=== PATIENT | male | born 1985 | race Caucasian/White ===

== ENCOUNTER 2016-12-10 02:34 | Emergency (ER) | payer BC, OTHER ==
[2016-12-10 03:14] LABS: Amphetamine Not Detected (NotDetected); Barbiturates Screen Not Detected (NotDetected); Benzodiazepine Screen Not Detected (NotDetected); Cocaine Metabolite Screen Not Detected (NotDetected); Medtox Control Line Valid? VALID (VALID); Methadone Not Detected (NotDetected); Methamphetamine Not Detected (NotDetected); Opiate Screen Not Detected (NotDetected); Oxycodone Screen Not Detected (NotDetected); Phencyclidine (PCP) Not Detected (NotDetected); THC/Cannabinoid Screen Not Detected (NotDetected); Tricyclic Screen Not Detected (NotDetected)
--- NOTE | 2016-12-10 03:21 | ERRECORD ---
[facility] EMERGENCY RECORD HPI GENERAL (02:36 ABUS) CHIEF COMPLAINT: Patient presents for evaluation of Possible exposure to PCP or something else. 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 He then cleaned the substance off of your fingers with hand filter cloth maker. The patient reports he was inspecting a car and person of interest who had been reportedly using PCP and was acting bizarre. He denies having an changes in vision, nausea and vomiting, abnormal thoughts, changes in perceptions, hallucinations (auditory or visual), or confusion. MECHANISM OF INJURY: Unknown mechanism. LOCATION: No localizing symptoms. SEVERITY: Currently there are no symptoms, Current severity of pain rated as 0/10. TIME COURSE: Sudden onset of symptoms, just prior to arrival, Date and time of onset was 1:15 am on 12/10/16, There has been no change in the patient's symptoms over time. ASSOCIATED WITH: No associated symptoms. EXACERBATED BY: Patient's condition exacerbated by nothing. RELIEVED BY: Patient's condition relieved by nothing. ROS (02:44 ABUS) CONSTITUTIONAL: Negative constitutional review of systems, Historian denies chills, denies fever. EYES: Negative eye review of systems, Historian denies eye pain, denies eye discharge, denies vision changes. ENT: Negative ears, nose, throat review of systems, Historian denies drooling, denies dysphagia, denies dysphasia, denies dysphonia, denies epistaxis, denies otalgia, denies otorrhea, denies rhinorrhea, denies sinus pain, denies sore throat, denies snoring, denies stridor, denies tinnitus, denies voice changes. Metallic taste, dry mouth. CARDIOVASCULAR: Negative cardiovascular review of systems, Historian denies chest pain, denies palpitations. RESPIRATORY: Negative respiratory review of systems, Historian denies cough, denies shortness of breath. GI: Negative gastrointestinal review of systems, Historian denies abdominal pain, denies constipation, denies diarrhea, denies nausea, denies vomiting. GENITOURINARY MALE: Negative genitourinary review of systems, Historian denies dysuria, denies hematuria. MUSCULOSKELETAL: Negative musculoskeletal review of systems, Historian denies back pain, denies fall, denies injury, denies neck &a-1R&a+25V*p+0X*[id number]*c202B*c15G*c2P*p-0X&a-25V&a+1R Name: Marco Antonio Garsia : 1985 M31 MedRec: [id number] AcctNum: [id number] Prepared: Sat Dec 10, 2016 03:24 by Interface Page 1 of 4 pMD [facility] EMERGENCY RECORD pain. SKIN: Negative skin review of systems, Historian denies rash, denies skin changes. NEUROLOGIC: Historian denies confusion, denies dizziness, denies dysphasia, denies focal weakness, denies headache, denies irritability, denies mental status changes, denies paralysis, denies paresthesias, denies seizures, reports sensory changes, denies speech changes. Metallic taste and tingling to the tongue. HEMO/LYMPHATIC: Normal hematologic/lymphatic system review, Historian denies abnormal blood clotting. PAST MEDICAL HISTORY (02:41 JDEA) MEDICAL HISTORY: Past medical history is not significant. MALE SURGICAL HISTORY: Patient's surgical history is not relevant to the management of the case. PSYCHIATRIC HISTORY: No previous psychiatric history. SOCIAL HISTORY: Patient denies alcohol use, Patient denies drug use, Patient has no smoking history, Lives at home, with family. KNOWN ALLERGIES nkda CURRENT MEDICATIONS (02:41 JDEA) None VITAL SIGNS (02:39 JDEA) VITAL SIGNS: BP: 136/104, Pulse: 89, Resp: 18, Temp: 98.3 (Oral), Pain: 0, O2 sat: 98 on Room Air, Time: 12/10/2016 02:39. PHYSICAL EXAM (02:44 ABUS) CONSTITUTIONAL: Vital signs reviewed, Patient afebrile, Pulse normal, Blood pressure normal, Respiratory rate normal, Patient appears non toxic, Patient appears pain free, Patient alert and oriented to person, place and time, Speaking in full sentences and answering all questions appropriately. HEAD: Head exam normal, Head exam included findings of head atraumatic, normocephalic. EYES: Eye exam normal, Eye exam included findings of eyelids normal to inspection, Pupils equally round and reactive to light, Extraocular muscles intact, no nystagmus. ENT: ENT exam normal, Ear exam normal, external ear normal, tympanic membranes normal, no bleeding, Pharynx exam normal, Uvula exam normal, Tonsil exam normal, Mouth exam normal, mucous membranes moist, teeth normal. NECK: Neck exam normal, Neck exam included findings of normal range of motion, Trachea midline, no meningeal signs, no cervical adenopathy, no tenderness. RESPIRATORY CHEST: Respiratory and chest exam normal, Respiratory exam included findings of no respiratory distress, Breath sounds &a-1R&a+25V*p+0X*[id number]*c202B*c15G*c2P*p-0X&a-25V&a+1R Name: Marco Antonio Garsia : 1985 M31 MedRec: [id number] AcctNum: [id number] Prepared: Sat Dec 10, 2016 03:24 by Interface Page 2 of 4 pMD [facility] EMERGENCY RECORD clear. CARDIOVASCULAR: Cardiovascular assessment normal, Cardiovascular exam included findings of heart rate regular rate and rhythm, Heart sounds normal. ABDOMEN MALE: Abdominal exam included findings of abdomen nontender, Bowel sounds normal, no distension, no mass, no pulsatile masses, no peritoneal signs, no rigidity, no guarding, no rebound, Rovsing's sign absent. BACK: Back exam normal, Back exam included findings of normal inspection, range of motion normal, no tenderness. UPPER EXTREMITY: Upper extremity exam normal, Upper extremity exam included findings of inspection normal, Range of motion normal, Motor strength normal, Sensation intact, Radial pulse normal. LOWER EXTREMITY: Lower extremity exam normal, Lower extremity exam included findings of inspection normal, Range of motion normal, Motor strength normal, Sensation intact, Posterior tibial pulse normal, Pedal pulse normal. NEURO: Neuro exam normal, Merrick coma scale 15, Neuro exam findings include patient oriented to person, place and time, Speech normal, Gait normal, Able to walk normal, acting normal. SKIN: Skin exam normal, Skin exam included findings of skin warm, dry, and normal in color, no rash. PSYCHIATRIC: Psychiatric exam normal, Psychiatric exam included findings of patient oriented to person place and time, Normal affect, Judgment normal, Insight normal, No suicidal ideations, No homicidal ideations, No auditory or visual hallucinations. DOCTOR NOTES (02:49 ABUS) TEXT: Pt is an officer with the [employer] and reports contact with a liquid substance only and then having a metallic taste in his mouth almost instantaneously but still present. He has no perception or other neurologic changes. He is sent here for a formal evaluation and urine drug test since it could be PCP or fentanyl. Exam: normal, GCS 15, acting normal and answering all questions appropriately in full sentences. See full exam for other details. DDX: illicit drug exposure. Plan: Urine drug screen for documentation purposes using appropriate urine specimen cup. I explained to the patient and his customer facilities supervisor that the urine drug screen may be limited in what it detects as well as limited to what substances, especially if changed, may not show up on the test. Dispo: Upon receipt of the urine sample, the patient can be discharged with the results of our local test and any other urine tests needed. PROBLEM LIST No recorded problems DIAGNOSIS (03:10 ABUS) FINAL: PRIMARY: Drug Exposure (Presumed). &a-1R&a+25V*p+0X*[id number]*c202B*c15G*c2P*p-0X&a-25V&a+1R Name: Marco Antonio Garsia : 1985 M31 MedRec: [id number] AcctNum: [id number] Prepared: Warner Dec 10, 2016 03:24 by Interface Page 3 of 4 pMD [facility] EMERGENCY RECORD PRESCRIPTION No recorded prescriptions DISPOSITION PATIENT: Disposition Type: Discharge, Disposition: *Discharge Home, Condition: Good. (03:10 ABUS) Patient left the department. (03:19 [place]) Cramer: JOHNSON=MD Melody, Abiodun FIGUEROA=Ancelmo, RN, Emma &a-1R&a+25V*p+0X*[id number]*c202B*c15G*c2P*p-0X&a-25V&a+1R Name: AdyRory hawthornein : 1985 M31 MedRec: [id number] AcctNum: [id number] Prepared: Warner Dec 10, 2016 03:24 by Interface Page 4 of 4 pMD BLAISED
--- NOTE | 2016-12-10 03:26 | PICIS ---
[facility] EMERGENCY RECORD TRIAGE ([facility] Dec 10, 2016 02:36 JDEA) TRIAGE NOTES: pt is in for exposure to unknown substance, pt states began to have metal taste in mouth s/p exposure. ([facility] Dec 10, 2016 02:36 JDEA) PATIENT: NAME: Marco Antonio Garsia, AGE: 31, GENDER: male, : Mon1985, TIME OF GREET: MonDec 10, 2016 02:34, PREFERRED LANGUAGE: Emirati, ETHNICITY: Not or , ECODE BILLING MAP: [facility], SSN: [id number], Zip Code: [address], KG WEIGHT: 95.25 (est.), PHONE: , , , PERSON ID: [id number], PCP: Cesario ROBIN JAMES. ([facility] Dec 10, 2016 02:36 JDEA) COMPLAINT: EXPOSURE. ([facility] Dec 10, 2016 02:36 JDEA) ADMISSION: URGENCY: 2 Emergent, ADMISSION SOURCE: Other, TRANSPORT: Walk-in, BED: TRIAGE. ([facility] Dec 10, 2016 02:36 JDEA) IMMUNIZATIONS: Flu vaccine up to date, Tetanus immunization up to date, Pneumococcal vaccine not up to date. (02:41 JDEA) TRIAGE SCREENING: Patient denies suicidal ideation, Patient denies presence of domestic violence. (02:41 JDEA) PROVIDERS: TRIAGE NURSE: Emma Ag RN. ([facility] Dec 10, 2016 02:36 JDEA) VITAL SIGNS: BP 136/104, Pulse 89, Resp 18, Temp 98.3, (Oral), Pain 0, O2 Sat 98, on Room Air, Time 12/10/2016 02:39. (02:39 JDEA) KNOWN ALLERGIES nkda CURRENT MEDICATIONS (02:41 JDEA) None VITAL SIGNS (02:39 JDEA) VITAL SIGNS: BP: 136/104, Pulse: 89, Resp: 18, Temp: 98.3 (Oral), Pain: 0, O2 sat: 98 on Room Air, Time: 12/10/2016 02:39. NURSING ASSESSMENT: FOCUSED (02:41 JDEA) CONSTITUTIONAL: Complex assessment performed, Patient arrives ambulatory, Gait steady, History obtained from patient, Patient appears comfortable, Patient cooperative, Patient alert, Oriented to person, place and time, Skin warm, Skin dry, Skin normal in color, Mucous membranes pink, Mucous membranes moist, Patient complains of exposure, pt is in for exposure to unknown substance, pt states began to have metal taste in mouth s/p exposure. states was searching a vehicle and touched an object he said he believed to be a cigarette, states that it felt wet to touch, states that immediately after he began to have a taste in his mouth, states he does not feel weird currently, states only has a dry and metal taste in his mouth, states picked object up with right hand and immediately put it down. denies other complaints. PAIN: denies pain at this time. EYES: Focused eye assessment finding include pupils equally round and reactive to light, Left pupil 3 mm in size, Right pupil 3 mm in &a-1R&a+25V*p+0X*c0652Z*c202B*c15G*c2P*p-0X&a-25V&a+1R Name: Marco Antonio Garsia : 1985 M31 MedRec: [id number] AcctNum: [id number] Prepared: Sat Dec 10, 2016 03:24 by Interface Page 1 of 7 pMD [facility] EMERGENCY RECORD size, no redness, no tearing. NEURO: Focused neuro assessment findings include patient alert, cooperative, No facial droop noted, Speech coherent. GCS: Eye opening: (4) - Spontaneous, Verbal: (5) - Oriented/conversive, Motor: (6) - Obeys commands/Spontaneous, GCS Total: 15. RESPIRATORY: Focused respiratory assessment findings include breath sounds clear, Breath sounds not absent. ABDOMEN: Focused abdominal assessment findings include abdomen soft, non tender, no complaint of nausea, no vomiting. GENITOURINARY: Focused genitourinary assessment not applicable, Notes: per pt report. MUSCULOSKELETAL: Focused musculoskeletal assessment findings include normal range of motion, radial pulse +3. LACERATION: Focused laceration assessment not applicable. NOTES: Patient tolerated procedure well. SAFETY: Side rails up, Cart/Stretcher in lowest position, Call light within reach, Hospital ID band on, Notes: sgt with pt at this time. NURSING PROCEDURE: CABLE TELEVISION TECHNICIAN (02:45 JDEA) PATIENT IDENTIFIER: Patient actively involved in identification process, Patient's identity verified by hospital ID bracelet. CABLE TELEVISION TECHNICIAN: Cardiac monitoring indicated for er indication, Patient placed on plumbing technician, Patient placed on non-invasive blood pressure monitor, Patient placed on continuous pulse oximetry, Notes: not continuous, utilized for triage purpose. FOLLOW-UP: After procedure, alarms set and on. NOTES: Patient tolerated procedure well. SAFETY: Side rails up, Cart/Stretcher in lowest position, Call light within reach, Hospital ID band on. NURSING PROCEDURE: DISCHARGE NOTE (03:18 JDEA) DISCHARGE: Patient discharged to work, ambulating without assistance, driving self, unaccompanied, Summary of Care printed/ provided, Patient requested and was provided an electronic copy of Discharge Instructions, Transition record given to patient, Discharge instructions given to patient, Simple or moderate discharge teaching performed, Above person(s) verbalized understanding of discharge instructions and follow-up care, Patient treated and evaluated by physician. BELONGINGS: Belongings and valuables with patient at time of discharge include:, Belongings remain with patient. NURSING PROCEDURE: URINE COLLECTION (02:54 JDEA) PATIENT IDENTIFIER: Patient actively involved in identification process, Patient's identity verified by hospital ID bracelet. URINE COLLECTION MALE: Urine collection indicated for er indication, Notes: s/p exposure, cup to pt, specimen labeled in front of pt and sent to lab by RN. &a-1R&a+25V*p+0X*q2051P*c202B*c15G*c2P*p-0X&a-25V&a+1R Name: Marco Antonio Garsia : 1985 M31 MedRec: [id number] AcctNum: [id number] Prepared: Sat Dec 10, 2016 03:24 by Interface Page 2 of 7 pMD [facility] EMERGENCY RECORD NOTES: Patient tolerated procedure well. SAFETY: Side rails up, Cart/Stretcher in lowest position, Call light within reach, Hospital ID band on. ORDER DETAILS Order Name: Drug Screen, Urine, Status: Active, Time: 02:48 12/10/2016, User: CAROLINA, - Ordered for: MD Melody, Abiodun, - Entered by: BING Ag, Emma - Sat Dec 10, 2016 02:48, - Quantity: 1. HPI GENERAL (02:36 ABUS) CHIEF COMPLAINT: Patient presents for evaluation of Possible exposure to PCP or something else. 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 He then cleaned the substance off of your fingers with hand water pump operator. The patient reports he was inspecting a car and person of interest who had been reportedly using PCP and was acting bizarre. He denies having an changes in vision, nausea and vomiting, abnormal thoughts, changes in perceptions, hallucinations (auditory or visual), or confusion. MECHANISM OF INJURY: Unknown mechanism. LOCATION: No localizing symptoms. SEVERITY: Currently there are no symptoms, Current severity of pain rated as 0/10. TIME COURSE: Sudden onset of symptoms, just prior to arrival, Date and time of onset was 1:15 am on 12/10/16, There has been no change in the patient's symptoms over time. ASSOCIATED WITH: No associated symptoms. EXACERBATED BY: Patient's condition exacerbated by nothing. RELIEVED BY: Patient's condition relieved by nothing. ROS (02:44 ABUS) CONSTITUTIONAL: Negative constitutional review of systems, Historian denies chills, denies fever. EYES: Negative eye review of systems, Historian denies eye pain, denies eye discharge, denies vision changes. ENT: Negative ears, nose, throat review of systems, Historian denies drooling, denies dysphagia, denies dysphasia, denies dysphonia, denies epistaxis, denies otalgia, denies otorrhea, denies rhinorrhea, denies sinus pain, denies sore throat, denies snoring, denies stridor, denies tinnitus, denies voice changes. Metallic &a-1R&a+25V*p+0X*n0313U*c202B*c15G*c2P*p-0X&a-25V&a+1R Name: Marco Antonio Garsia : 1985 M31 MedRec: [id number] AcctNum: [id number] Prepared: Warner Dec 10, 2016 03:24 by Interface Page 3 of 7 pMD [facility] EMERGENCY RECORD taste, dry mouth. CARDIOVASCULAR: Negative cardiovascular review of systems, Historian denies chest pain, denies palpitations. RESPIRATORY: Negative respiratory review of systems, Historian denies cough, denies shortness of breath. GI: Negative gastrointestinal review of systems, Historian denies abdominal pain, denies constipation, denies diarrhea, denies nausea, denies vomiting. GENITOURINARY MALE: Negative genitourinary review of systems, Historian denies dysuria, denies hematuria. MUSCULOSKELETAL: Negative musculoskeletal review of systems, Historian denies back pain, denies fall, denies injury, denies neck pain. SKIN: Negative skin review of systems, Historian denies rash, denies skin changes. NEUROLOGIC: Historian denies confusion, denies dizziness, denies dysphasia, denies focal weakness, denies headache, denies irritability, denies mental status changes, denies paralysis, denies paresthesias, denies seizures, reports sensory changes, denies speech changes. Metallic taste and tingling to the tongue. HEMO/LYMPHATIC: Normal hematologic/lymphatic system review, Historian denies abnormal blood clotting. PAST MEDICAL HISTORY (02:41 JDEA) MEDICAL HISTORY: Past medical history is not significant. MALE SURGICAL HISTORY: Patient's surgical history is not relevant to the management of the case. PSYCHIATRIC HISTORY: No previous psychiatric history. SOCIAL HISTORY: Patient denies alcohol use, Patient denies drug use, Patient has no smoking history, Lives at home, with family. PHYSICAL EXAM (02:44 ABUS) CONSTITUTIONAL: Vital signs reviewed, Patient afebrile, Pulse normal, Blood pressure normal, Respiratory rate normal, Patient appears non toxic, Patient appears pain free, Patient alert and oriented to person, place and time, Speaking in full sentences and answering all questions appropriately. HEAD: Head exam normal, Head exam included findings of head atraumatic, normocephalic. EYES: Eye exam normal, Eye exam included findings of eyelids normal to inspection, Pupils equally round and reactive to light, Extraocular muscles intact, no nystagmus. ENT: ENT exam normal, Ear exam normal, external ear normal, tympanic membranes normal, no bleeding, Pharynx exam normal, Uvula exam normal, Tonsil exam normal, Mouth exam normal, mucous membranes moist, teeth normal. NECK: Neck exam normal, Neck exam included findings of normal range of motion, Trachea midline, no meningeal signs, no cervical adenopathy, no tenderness. &a-1R&a+25V*p+0X*b0023E*c202B*c15G*c2P*p-0X&a-25V&a+1R Name: Marco Antonio Garsia : 1985 M31 MedRec: [id number] AcctNum: [id number] Prepared: [facility] Dec 10, 2016 03:24 by Interface Page 4 of 7 D [facility] EMERGENCY RECORD RESPIRATORY CHEST: Respiratory and chest exam normal, Respiratory exam included findings of no respiratory distress, Breath sounds clear. CARDIOVASCULAR: Cardiovascular assessment normal, Cardiovascular exam included findings of heart rate regular rate and rhythm, Heart sounds normal. ABDOMEN MALE: Abdominal exam included findings of abdomen nontender, Bowel sounds normal, no distension, no mass, no pulsatile masses, no peritoneal signs, no rigidity, no guarding, no rebound, Rovsing's sign absent. BACK: Back exam normal, Back exam included findings of normal inspection, range of motion normal, no tenderness. UPPER EXTREMITY: Upper extremity exam normal, Upper extremity exam included findings of inspection normal, Range of motion normal, Motor strength normal, Sensation intact, Radial pulse normal. LOWER EXTREMITY: Lower extremity exam normal, Lower extremity exam included findings of inspection normal, Range of motion normal, Motor strength normal, Sensation intact, Posterior tibial pulse normal, Pedal pulse normal. NEURO: Neuro exam normal, Merrick coma scale 15, Neuro exam findings include patient oriented to person, place and time, Speech normal, Gait normal, Able to walk normal, acting normal. SKIN: Skin exam normal, Skin exam included findings of skin warm, dry, and normal in color, no rash. PSYCHIATRIC: Psychiatric exam normal, Psychiatric exam included findings of patient oriented to person place and time, Normal affect, Judgment normal, Insight normal, No suicidal ideations, No homicidal ideations, No auditory or visual hallucinations. EVENTS TRANSFER: Triage to Emergency Triage. (Sat Dec 10, 2016 02:36 JDEA) Removed from Emergency Triage. 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 He has no perception or other neurologic changes. He is sent here for a formal evaluation and urine drug test since it could be PCP or fentanyl. Exam: normal, GCS 15, acting normal and answering all questions appropriately in full sentences. See full exam for other details. DDX: illicit drug exposure. Plan: Urine drug screen for documentation purposes using appropriate urine specimen cup. I explained to the patient and his telegraphic instrument supervisor that the urine drug screen may be limited in what it detects as well as limited to what substances, especially if changed, may not show up on the test. Dispo: Upon receipt of the urine sample, the patient can be discharged with the results of our local test and any other urine &a-1R&a+25V*p+0X*t6903W*c202B*c15G*c2P*p-0X&a-25V&a+1R Name: Marco Antonio Garsia : 1985 M31 MedRec: [id number] AcctNum: [id number] Prepared: [facility] Dec 10, 2016 03:24 by Interface Page 5 of 7 pMD [facility] EMERGENCY RECORD tests needed. PROBLEM LIST No recorded problems DIAGNOSIS (03:10 ABUS) FINAL: PRIMARY: Drug Exposure (Presumed). DISPOSITION PATIENT: Disposition Type: Discharge, Disposition: *Discharge Home, Condition: Good. (03:10 ABUS) Patient left the department. (03:19 JDEA) INSTRUCTION (03:12 ABUS) FOLLOWUP: Fiona ROBIN., Y[place]ENIA, Internal Medicine, [address] [place] [id number], [phone], Follow up with Primary Care Physician as needed. SPECIAL: Please go to see your primary care doctor or come back to the ED if you start to have new symptoms that concern you, changes in vision, nausea or vomiting, headache, confusion, hallucinations, palpitations, chest pain or tightness, shortness of breath, lethargy, unusual fatigue, or symptoms that concern you. PRESCRIPTION No recorded prescriptions IMAGING (03:20 JDEA) *DISCHARGE INSTRUCTIONS RECEIPT: Image captured from scanner. *SUPPLY CHARGE SHEET: Image captured from scanner. ADMIN (03:15 ABUS) DIGITAL SIGNATURE: MD Oliver Anthony. RESULTS (03:21 ABUS) LABORATORY: Drug Screen, Urine Collection DT: [facility] Dec 10, 2016 03:13, THC/Cannabinoid Screen Not Detected , Range (NotDetected), Phencyclidine (PCP) Not Detected , Range (NotDetected), Cocaine Metabolite Screen Not Detected , Range (NotDetected), Methamphetamine Not Detected , Range (NotDetected), Opiate Screen Not Detected , Range (NotDetected), Amphetamine Not Detected , Range (NotDetected), Benzodiazepine Screen Not Detected , Range (NotDetected), Tricyclic Screen Not Detected , Range (NotDetected), Methadone Not Detected , Range (NotDetected), Barbiturates Screen Not Detected , Range (NotDetected), Oxycodone Screen Not Detected , Range (NotDetected), Propoxyphene Screen Not Detected , Range (NotDetected), Drug Screen Cutoff , Range (), The [employer] [place] Profile-V Panel for Qualitative Drugs of &a-1R&a+25V*p+0X*[id number]*c202B*c15G*c2P*p-0X&a-25V&a+1R Name: Marco Antonio Garsia : 1985 M31 MedRec: [id number] AcctNum: [id number] Prepared: [facility] Dec 10, 2016 03:24 by Interface Page 6 of 7 pMD [facility] EMERGENCY RECORD Abuse assays are for, presumptive screening testing only. The drug class and detection limits, are as follows: Drug Class Detection Limit Amphetamine , 500 ng/mL* Barbiturates 200 ng/mL , Benzodiazepines 150 ng/mL* Cocaine 150 ng/mL*, Methamphetamine 500 ng/mL* Methadone 200, ng/mL* Opiates 100 ng/mL* Oxycodone , 100 ng/mL PCP 25 ng/mL Propoxyphene , 300 ng/mL Tricyclic Antidepressants 300 ng/mL Cannabinoids (THC) , 50 ng/mL Tests which yield a presumptive positive result must be , tested using a more specific alternate chemical method in order to obtain, a confirmed analytical result. Additional confirmation and identification, may be ordered on a routine basis, if desired. Presumptive positive urines, are held for two weeks. . Cramer: JOHNSON=MD Melody, Abiodun FIGUEROA=BING Ag, Emma &a-1R&a+25V*p+0X*[id number]*c202B*c15G*c2P*p-0X&a-25V&a+1R Name: AdyMarco Antonio : 1985 M31 MedRec: [id number] AcctNum: [id number] Prepared: Warner Dec 10, 2016 03:24 by Interface Page 7 of 7 pMD [facility]TDD
== END 2016-12-10 03:19 | disposition home or self-care (01) ==
LOC: MADERS 02:34
DX: Z77.29 Contact with and (suspected) exposure to other hazardous substances (principal)
CPT/HCPCS: 80306; 99283